=== PATIENT | female | born 1930 | race Caucasian/White ===

== ENCOUNTER 2016-12-16 21:53 | Inpatient (IN) ==
[2016-12-16 22:57] LABS: Basophils % 0.1 %; Hematocrit 39.7 % (35.3-44.9); Hemoglobin 12.8 g/dL (11.5-15.4); Immature Granulocytes % 0.7 % (0-4); Lymphocytes # 1.3 K/mcL (0.6-4.6); Mean Corpuscular HGB Conc 32.2 g/dL (31.6-35.5); Mean Corpuscular Hemoglobin 29.1 pg (28.0-33.3); Mean Corpuscular Volume 90.2 fL (83.0-100.0); Mean Platelet Volume 10.1 fL (9.4-12.4); Monocytes # 0.7 K/mcL (0.0-1.3); Monocytes % 3.9 %; Neutrophils # 14.7 K/mcL (1.6-8.9); Platelet Count 233 K/mcL (140-400); Red Cell Distribution Width 13.6 % (11.5-14.5); Segmented Neutrophils % 87.3 %
[2016-12-16 23:04] LABS: INR 1.1; Prothrombin Time 11.4 Seconds (9.4-12.1)
[2016-12-16 23:07] LABS: Activated Partial Thrombo Time 28.5 Seconds (26.0-36.0)
[2016-12-16 23:10] LABS: Calcium 9.6 mg/dL (8.6-10.8); Potassium 3.7 mEq/L (3.5-4.5)
--- NOTE | 2016-12-16 23:38 | Emergency Department Note ---
START Narrative - START START: I examined this patient and my medical decision-making was reviewed with the OFFICE MESSENGER HELPER/PA/Advanced Practice Nurse/Resident Physician. I agree with the documented findings, disposition and treatment plan as described except to the extent set forth below.
--- NOTE | 2016-12-17 00:10 | Emergency Department Note ---
Disposition Clinical Impression: Hematochezia Disposition: Admitted As Inpatient Condition: Good Referrals: Brayden Tabares Jr, MD [Primary Care Provider] - Forms: ED Satisfaction Letter Time of Disposition: 00:32 General Adult HPI - General Chief complaint: ED GI Bleed Stated complaint: Rectal Bleed Time Seen by Provider: 12/16/16 22:15 Source: patient, family Limitations: no limitations Nursing Notes Reviewed: Yes Vital Signs Reviewed: Yes - History of Present Illness HPI Narrative: Several episodes of bright red bleeding per rectum today. And states she felt a crampy pain in her abdomen had a bowel movement her abdominal pain went away however she did have bright red blood coming out of her rectum. States it was initially streaked with stool but subsequently had several episodes where it was just dripping out of her bottom. Pain Scale: 0 - Related Data Allergies Allergy/AdvReac Type Severity Reaction Status Date / Time No Known Allergies Allergy Verified 12/16/16 22:15 All systems ED: reviewed and negative except as stated. Constitutional: Denies: fever, chills ENT ED: Denies: congestion Cardiovascular: Denies: chest pain, palpitations, syncope Respiratory: Denies: cough, dyspnea Gastrointestinal: Reports: abdominal pain (Cramping prior to defecation none at this time.), diarrhea, hematochezia. Denies: nausea, vomiting, hematemesis, melena Genitourinary: Denies: urgency, dysuria, frequency, hematuria Musculoskeletal: Denies: back pain, neck pain Neurological: Denies: headache, weakness Past Medical History - Past Medical History Medical history: Reports: dementia, hyperlipidemia, hypertension, renal disease - Social History Smoking Status: Former smoker Alcohol use: Reports: none Drug use: Reports: none Physical Exam - General Limitations: no limitations General appearance: alert, in no apparent distress - Head Head exam: atraumatic, normocephalic - Eye Eye exam: Present: normal appearance, PERRL, EOMI. Absent: scleral icterus - ENT ENT exam: normal exam, normal oropharynx, mucous membranes moist - Neck Neck exam: Present: normal inspection, full ROM, trachea midline. Absent: tenderness, meningismus, lymphadenopathy - Chest Chest inspection: Present: normal inspection, symmetric chest wall rise - Respiratory Respiratory exam: Present: normal lung sounds bilaterally - Cardiovascular Cardiovascular exam: Present: regular rate, normal rhythm, normal heart sounds - Abdominal Exam Abdominal exam: Present: soft, Non-Tender, normal bowel sounds. Absent: tenderness, distention, guarding, rebound, rigidity, organomegaly - Rectal Exam Snow Remover present during exam: Yes Rectal exam: Present: normal inspection, normal rectal tone, heme (+) stool, bloody stool (Bright red blood). Absent: hemorrhoids, mass, tenderness - Extremities Exam Extremities exam: Present: normal inspection, full ROM, normal capillary refill. Absent: tenderness, pedal edema - Back Exam Back exam: Present: normal inspection, full ROM. Absent: tenderness - Neurological Exam Neurological exam: Present: alert, other (Pleasantly demented) - Psychiatric Psychiatric exam: Present: normal affect, normal mood. Absent: depressed - Skin Skin exam: Present: warm, dry, intact, normal color. Absent: rash, cyanosis, diaphoresis Course Course Narrative: Pleasantly demented female resting comfortably in bed. Daughter at bedside seeing the patient had several episodes of bright red blood per rectum this afternoon. She states initially the stool was streaked with bright red blood and then subsequently there was several episodes of just blood. Patient states that she did have crampy feeling in her abdomen prior to defecation but this was relieved with defecation. She denies any abdominal pain at this time. She has no abdominal pain on exam. As well resting in bed. She has no other jobs at this time. Her lung sounds are clear heart tones are normal abdomen is soft and nontender with no organomegaly present on exam. She has no edema to her extremities. On rectal exam she has bright red blood. I do not appreciate any masses or hemorrhoids. Patient's family states that she did have colonoscopy around 7 years ago. She has never had an episode of hematochezia before. Admit patient for serial H&H's. Her abdominal exam is benign I do not believe she is imaged at this time. She has not been tachycardic and her pressure is normalized I do not feel that she needs a fluid bolus at this time. We will admit patient to the hospital for further evaluation. Vital Signs Temperature 98.8 F 12/16/16 22:09 Pulse Rate 72 12/16/16 22:09 Respiratory Rate 18 12/16/16 22:09 Blood Pressure 151/75 12/16/16 22:09 O2 Sat by Pulse Oximetry 94 12/16/16 22:09 Temperature 98.8 F 12/16/16 22:09 Pulse Rate 72 12/16/16 22:09 Respiratory Rate 18 12/16/16 22:09 Blood Pressure 151/75 12/16/16 22:09 O2 Sat by Pulse Oximetry 94 12/16/16 22:09 Oxygen Delivery Oxygen Delivery Room Air Medical Decision Making - Lab Data Result diagrams: 12/16/16 22:46 12/16/16 22:46 Lab Results 12/16/16 12/16/16 12/16/16 Range/Units 22:46 22:46 22:46 WBC 16.8 H (4.3-11.1) K/mcL RBC 4.40 (3.82-4.97) M/mcL Hgb 12.8 (11.5-15.4) g/dL Hct 39.7 (35.3-44.9) % MCV 90.2 (83.0-100.0) fL MCH 29.1 (28.0-33.3) pg MCHC 32.2 (31.6-35.5) g/dL RDW 13.6 (11.5-14.5) % Plt Count 233 (140-400) K/mcL MPV 10.1 (9.4-12.4) fL Immature Gran % 0.7 (0-4) % Seg Neutrophils % 87.3 % Lymphocytes % 8.0 % Monocytes % 3.9 % Eosinophils % 0.0 % Basophils % 0.1 % Neutrophils # 14.7 H (1.6-8.9) K/mcL Lymphocytes # 1.3 (0.6-4.6) K/mcL Monocytes # 0.7 (0.0-1.3) K/mcL Eosinophils # 0.0 (0.0-0.6) K/mcL Basophils # 0.0 (0.0-0.2) K/mcL PT 11.4 (9.4-12.1) Seconds INR 1.1 APTT 28.5 (26.0-36.0) Seconds Sodium 139 (136-145) mEq/L Potassium 3.7 (3.5-4.5) mEq/L Chloride 104 (98-109) mEq/L Carbon Dioxide 23 (19-29) mEq/L BUN 21 H (7-20) mg/dL Creatinine 1.57 H (0.57-1.11) mg/dL Est GFR ( Amer) 38 L (> 60) Est GFR (Non-Af Amer) 31 L (> 60) BUN/Creatinine Ratio 13 (6-26) Glucose 116 H (70-99) mg/dL Calculated Osmolality 292 (280-300) Calcium 9.6 (8.6-10.8) mg/dL
--- NOTE | 2016-12-17 05:02 | Internal Med History&Physical ---
Date of Encounter: 12/17/16 Time of Encounter: 03:00 Assessment and Plan (1) Hematochezia Current visit: Yes Status: Acute Monitor hemoglobin and hematocrit. consult dance therapist. Obtain CT scan of the abdomen for further evaluation (2) Leucocytosis Current visit: Yes Status: Acute Likely secondary to GI bleed. CT scan of the abdomen to exclude diverticulitis. UA and CXR to exclude infection. Qualifiers: Leukocytosis type: unspecified Qualified Code(s): D72.829 - Elevated white blood cell count, unspecified (3) CKD (chronic kidney disease) stage 3, GFR 30-59 ml/min Current visit: Yes Status: Chronic Monitor renal function (4) Dementia Current visit: Yes Status: Chronic Continue home meds Qualifiers: Dementia type: unspecified type Dementia behavioral disturbance: without behavioral disturbance Qualified Code(s): F03.90 - Unspecified dementia without behavioral disturbance (5) Hypertension Current visit: Yes Status: Chronic Monitor BP Qualifiers: Hypertension type: essential hypertension Qualified Code(s): I10 - Essential (primary) hypertension (6) DVT prophylaxis Current visit: Yes Status: Acute SCDs Internal Medicine - H&P: HPI Chief complaint: Rectal bleeding Admitted From: Emergency Dept Plans for Post Hospital Care: Home History of present illness: Ms. Helton is a 86 year old female With h/o dementia, hyperlipidemia, hypertension was brought in with h/o Several episodes of bright red bleeding per rectum. Pt seemed to be confused and is not able to give reliable details. No family members at the bedside at the time of my evaluation. I have reviewed the ER records. Rectal bleeding apparently initially started with streaking with stool but subsequently had several episodes where it was just dripping out of her bottom. she apparently felt a crampy pain in her abdomen had a bowel movement her abdominal pain went away. She denies chest pain, shortness of breath, nausea, vomiting, fever, chills. She was evaluated in the emergency department and admitted to the hospitalist service for further management. Past Med Surg Social Fam HX - Past Medical History Medical history: dementia, hyperlipidemia, hypertension, renal disease Psychiatric history: no psych history - Past Surgical History Surgical History: hysterectomy - Social History Smoking Status: Former smoker Alcohol use: none Drug use: none - Family History Mother Adopted: [place]: [place] Family Member Ethnicity: Non- Living Status: Age at : 80 Cause of : STROKE Hx Family Cardiac Disorders: Yes Hx Family Respiratory Disorders: No Hx Family Cancer: No Hx Family GI Disorders: No Hx Family Genitourinary Disorders: No Hx Family Endocrine Disorder: No Hx Family Musculoskeletal Disorders: No Hx Family Neuromuscular Disorders: No Hx Family Neurologic Disorders: Yes (STROKE) Hx Family HEENT Disorders: No Hx Family Autoimmune Disorders: No Hx Family Reproductive Disorders: No Hx Family Psychosocial Disorders: No Hx Family Medical Disorders: No Internal Medicine - H&P: Meds Amlodipine Besylate 10 mg PO DAILY 12/17/16 [History] Atorvastatin 10 mg PO HS 12/17/16 [History] Donepezil HCl 5 mg PO HS 12/17/16 [History] Metoprolol Tartrate 50 mg PO DAILY 12/17/16 [History] Allergies No Known Allergies Allergy (Verified 12/16/16 22:15) ROS unobtainable: due to mental status - Constitutional Vitals: Temp Pulse Resp BP Pulse Ox 98.7 F 115 16 150/56 94 12/17/16 03:07 12/17/16 03:07 12/17/16 03:07 12/17/16 03:07 12/17/16 03:07 Exam: General: Not in acute distress at the time of my evaluation HEENT: Oral mucosa is moist. No conjunctival palor or scleral icterus Neck: No obvious neck swellings Lungs: Clear to auscultation Cardiac: Regular rate and rhythm. No significant murmurs Abdomen: Soft, non tender. Bowel sounds present Genitourinary: No alston catheter Neurological: Alert and confused. No gross localizing deficits Psych: Not aggressive or agitated Extremities: no significant leg edema Skin: No generalized rash Internal Med - H&P Results - Labs CBC & Chem 7: 12/16/16 22:46 12/16/16 22:46 - EKG Data -: EKG Interpreted by Myself EKG shows normal: sinus rhythm - EKG Data EKG comments: CAREN 12/17/16 07:46
[2016-12-17] MEDS ORDERED: Naloxone 0.4 MG/ML INJ IVP PRN (06:44)
[2016-12-17 08:02] LABS: Basophils % 0.1 %; Hematocrit 37.8 % (35.3-44.9); Hemoglobin 12.4 g/dL (11.5-15.4); Immature Granulocytes % 0.5 % (0-4); Lymphocytes # 2.1 K/mcL (0.6-4.6); Mean Corpuscular HGB Conc 32.8 g/dL (31.6-35.5); Mean Corpuscular Hemoglobin 29.4 pg (28.0-33.3); Mean Corpuscular Volume 89.6 fL (83.0-100.0); Mean Platelet Volume 10.6 fL (9.4-12.4); Monocytes # 0.8 K/mcL (0.0-1.3); Monocytes % 5.6 %; Neutrophils # 10.8 K/mcL (1.6-8.9); Platelet Count 220 K/mcL (140-400); Red Blood Count 4.22 M/mcL (3.82-4.97); Red Cell Distribution Width 13.8 % (11.5-14.5); Segmented Neutrophils % 78.8 %
[2016-12-17 08:16] LABS: Albumin 3.3 g/dL (3.5-5.0); Albumin/Globulin Ratio 0.9 (1.1-2.2); Bilirubin,Total 1.3 mg/dL (0.2-1.2); Calcium 9.4 mg/dL (8.6-10.8); Globulin 3.7 g/dL (2.4-3.5); Magnesium 1.8 mg/dL (1.6-2.6); Potassium 3.3 mEq/L (3.5-4.5)
[2016-12-17] MEDS: 0.9 % Sodium Chloride 1,000 ML IVC SCH (08:19)
[2016-12-17] MEDS: amLODIPine 5 MG TABLET PO SCH (09:49)
[2016-12-17 10:55] LABS: Hematocrit 35.9 % (35.3-44.9); Hemoglobin 11.6 g/dL (11.5-15.4)
--- NOTE | 2016-12-17 10:57 | Event Note ---
Date of Encounter: 12/17/16 Time of Encounter: 09:15 (and 1015) Patient seen and examined earlier this morning. Initially on examination, patient asleep and she awakened easily to voice. She is alert and pleasantly confused. She denies pain at this time. She states she has not been bleeding since she got admitted however per nursing report, patient's bed has had to be changed 3 times this morning already and states that the patient has a rather sizable amount of blood and mucus that is saturating her diaper and her bed sheets. Her capillary refill is brisk and she is not pale on examination however will trend her H&H. GI is on board and has been notified of the patient 's continued bleeding, likely colonoscopy today. Patient to be nothing by mouth. No family is present at bedside. Abdominal CT consistent with colitis infectious versus ischemic and with possible phlegmon. Leukocytosis noted- will initiate Cipro and Flagyl (NKDA). Mild hypokalemia noted, magnesium normal. Renal functioning is stable-she has chronic kidney disease stage 3/4. Will trend. ITS Impressions Abdomen/Pelvis CT 12/17/16 06:47 IMPRESSION: 1. Left hemicolonic colitis with questionable 1.8 cm focal intramural phlegmon along the mid sigmoid colon. No perforation or peritoneal abscess. This could relate to infectious/inflammatory versus ischemic etiology. 2. Extensive arterial calcifications. D/ / 12/17/2016 08:46:52 Pablo Venegas MD / medardo Interpreting Provider: Pablo Venegas MD Chest X-Ray 12/17/16 07:51 IMPRESSION: No acute process. D/ / Gabriel Salgado MD / Gabriel Salgado MD Interpreting Provider: Gabriel Salgado MD
[2016-12-17] MEDS: MetroNIDAZOLE 500 MG/100 ML 500 MG/100 ML BAG IVPB SCH ×3 (11:36→23:52)
--- NOTE | 2016-12-17 11:46 | Electrocardiograph Report ---
[address] [place], [place] [address] Test Date: 2016-12-16 Pat Name: Wayne Helton Department: 105 Room: 3B21 Gender: F Regulatory Affairs Specialist: DOLORES : [id number] Requested By: Guillermo Jung Order Number: [id number] Reading MD: Mahendra Lieberman MD Measurements Intervals [place] Rate: 71 P: 43 OK: 178 QRS: -45 QRSD: 121 T: 62 QT: 423 QTc: 445 Interpretive Statements SINUS RHYTHM MARKED LEFT AXIS DEVIATION MODERATE INTRAVENTRICULAR CONDUCTION DELAY VOLTAGE CRITERIA FOR LVH Poor R wave progression Electronically Signed On 12-17-2016 11:44:23 EDT by Mahendra Lieberman MD
--- NOTE | 2016-12-17 12:49 | Gastroenterology Consult Note ---
<Roger Murray - Last Filed: 12/17/16 12:47> Date of Encounter: 12/17/16 Time of Encounter: 11:30 - Assessment and plan (1) Hematochezia Current Visit: Yes Status: Acute Assessment and plan: Pt with several episodes of BRBPR, but Hgb 12.4. Continue to monitor CBC. Consider colonoscopy in 6-8 weeks. (2) Dementia Current Visit: Yes Status: Chronic Qualifiers: Dementia type: unspecified type Dementia behavioral disturbance: without behavioral disturbance Qualified Code(s): F03.90 - Unspecified dementia without behavioral disturbance (3) Leucocytosis Current Visit: Yes Status: Acute Assessment and plan: Management per primary team. Improving, continue antibiotics. Qualifiers: Leukocytosis type: unspecified Qualified Code(s): D72.829 - Elevated white blood cell count, unspecified (4) CKD (chronic kidney disease) stage 3, GFR 30-59 ml/min Current Visit: Yes Status: Chronic - Time Spent With Patient Total time spent is greater than 50% in coordination of care (as documented) at patient's floor/unit and/or counseling patient: GI History of Present Illness - Data of Consult Patient: new to practice Consult date: 12/17/16 Requesting Physician: Jacqueline Mccloud - Consult Narrative Reason for consult: Hematochezia History of present illness: Ms. Helton is a 86 year old female with PMHx of dementia, HLD, HTN who was brought to the ED with several episodes of BRBPR that started with streaking with stool but then had several episodes where it was dripping from her anus. She apparently felt a crampy pain in her abdomen had a bowel movement her abdominal pain went away. She denies fever, chills, chest pain, nausea, vomiting. CT A/P with left hemicolonic colitis with questionable 1.8 cm focal intramural phlegmon along the mid sigmoid colon. No perforation peritoneal abscess could relate to infectious/inflammatory versus ischemic etiology. Procedures: Colonoscopy 03/30/2009 Dr. Daly: Tubular adenoma splenic flexure. NSAIDs: None Anticoagulation: None Past Med Surg Social Fam HX - Past Medical History Medical history: dementia, hyperlipidemia, hypertension, renal disease Psychiatric history: no psych history - Past Surgical History Surgical History: hysterectomy - Social History Smoking Status: Former smoker Alcohol use: none Drug use: none - Family History Mother Adopted: [place]: [place] Family Member Ethnicity: Non- Living Status: Age at : 80 Cause of : STROKE Hx Family Cardiac Disorders: Yes Hx Family Respiratory Disorders: No Hx Family Cancer: No Hx Family GI Disorders: No Hx Family Genitourinary Disorders: No Hx Family Endocrine Disorder: No Hx Family Musculoskeletal Disorders: No Hx Family Neuromuscular Disorders: No Hx Family Neurologic Disorders: Yes (STROKE) Hx Family HEENT Disorders: No Hx Family Autoimmune Disorders: No Hx Family Reproductive Disorders: No Hx Family Psychosocial Disorders: No Hx Family Medical Disorders: No - Gastrointestinal Gastrointestinal: Present: as per HPI - Constitutional Constitutional: as per HPI - EENT Eyes: as per HPI Ears: Present: as per HPI Nose, mouth and throat: Present: as per HPI - Cardiovascular Cardiovascular ROS: Present: as per HPI - Respiratory Respiratory IM: Present: as per HPI - Genitourinary Genitourinary: Absent: change in color, Urinary frequency - Neurological ROS Neurological GI: Present: as per HPI - Hematologic/Lymphatic Hematologic/Lymphatic pediatric: Present: as per HPI - Musculoskeletal Musculoskeletal ROS GI: Present: as per HPI - Integumentary Integumentary GI: Present: as per HPI - Psychiatric ROS Psychiatric GI: Present: as per HPI - Endocrine Endocrine IM: Present: as per HPI - Constitutional Vitals: Temp Pulse Resp BP Pulse Ox 99.9 F H 59 16 123/71 92 12/17/16 11:17 12/17/16 11:17 12/17/16 11:17 12/17/16 11:17 12/17/16 11:17 General appearance: Present: cooperative, no acute distress Exam: Alert but pleasantly confused - Head Head exam: Present: atraumatic, normocephalic - Eye Eye exam: Present: normal appearance, sclera anicteric - ENT ENT exam: Present: mucous membranes dry - Neck Neck exam general surgery: Present: normal inspection, trachea midline - Respiratory Respiratory exam: Present: decreased breath sounds, CTAB. Absent: rales, rhonchi - Cardiovascular Cardiovascular exam: Present: RRR, +S1, +S2 - GI/Abdominal GI/Abdominal exam: Present: soft, no peritoneal signs. Absent: distended, firm , guarding, tenderness - Rectal Rectal exam: Present: deferred - Extremities Exam Extremities exam: Present: warm - Neurological Exam Neurological exam: Present: altered. Absent: oriented X3 - Psychiatric Psychiatric exam: Present: normal affect, normal mood - Skin Skin exam: Present: dry, intact, normal color, warm Results - Labs CBC & Chem 7: 12/17/16 10:33 12/17/16 07:41 Labs: Last Result Calcium 9.4 mg/dL (8.6-10.8) 12/17/16 07:41 Entire Visit Hgb 11.6 g/dL (11.5-15.4) 12/17/16 10:33 Hct 35.9 % (35.3-44.9) 12/17/16 10:33 PT 11.4 Seconds (9.4-12.1) 12/16/16 22:46 Total Bilirubin 1.3 mg/dL (0.2-1.2) H 12/17/16 07:41 AST 17 Units/L (5-34) 12/17/16 07:41 ALT 9 Units/L (0-55) 12/17/16 07:41 - ABG ABG results: PT/INR, D-dimer PT 11.4 Seconds (9.4-12.1) 12/16/16 22:46 - Impressions Impressions Chest X-Ray 12/17/16 07:51 IMPRESSION: No acute process. D/ / Gabriel Salgado MD / Gabriel Salgado MD Interpreting Provider: Gabriel Salgado MD Consult Discharge Plan - Plan Referrals: Brayden Tabares Jr, MD [Primary Care Provider] - <Mariela Nieves - Last Filed: 12/17/16 14:55> Date of Encounter: 12/17/16 Time of Encounter: 14:00 - Time Spent With Patient Total time spent is greater than 50% in coordination of care (as documented) at patient's floor/unit and/or counseling patient: GI History of Present Illness - Data of Consult Requesting Physician: Jacqueline Mccloud - Consult Narrative History of present illness: Ms. Helton is a 86 year old female - Constitutional Vitals: Temp Pulse Resp BP Pulse Ox 99.9 F H 59 16 123/71 92 12/17/16 11:17 12/17/16 11:17 12/17/16 11:17 12/17/16 11:17 12/17/16 11:17 Results - Labs CBC & Chem 7: 12/17/16 12:36 12/17/16 07:41 Labs: Last Result Calcium 9.4 mg/dL (8.6-10.8) 12/17/16 07:41 Entire Visit Hgb 10.9 g/dL (11.5-15.4) L 12/17/16 12:36 Hct 33.9 % (35.3-44.9) L 12/17/16 12:36 PT 11.4 Seconds (9.4-12.1) 12/16/16 22:46 Total Bilirubin 1.3 mg/dL (0.2-1.2) H 12/17/16 07:41 AST 17 Units/L (5-34) 12/17/16 07:41 ALT 9 Units/L (0-55) 12/17/16 07:41 - ABG ABG results: PT/INR, D-dimer PT 11.4 Seconds (9.4-12.1) 12/16/16 22:46 - Impressions Impressions Chest X-Ray 12/17/16 07:51 IMPRESSION: No acute process. D/ / Gabriel Salgado MD / Gabriel Salgado MD Interpreting Provider: Gabriel Salgado MD - Attending Attestation I examined this patient and my medical decision-making was reviewed with the ENTERPRISE SOFTWARE ENGINEER/PA/Advanced Practice Nurse/Resident Physician. I agree with the documented findings, disposition and treatment plan as described except to the extent set forth below. rectal bleeding most probably due to ischemic colitis. Recommendation: Continue IV fluids IV antibiotics no plan for colonoscopy at this point
[2016-12-17 12:52] LABS: Hematocrit 33.9 % (35.3-44.9); Hemoglobin 10.9 g/dL (11.5-15.4)
[2016-12-17 19:31] LABS: Hematocrit 35.2 % (35.3-44.9); Hemoglobin 11.4 g/dL (11.5-15.4)
[2016-12-18 03:59] LABS: Hematocrit 33.3 % (35.3-44.9); Hemoglobin 10.8 g/dL (11.5-15.4); Immature Granulocytes % 0.4 % (0-4); Lymphocytes % 19.4 %; Mean Corpuscular HGB Conc 32.4 g/dL (31.6-35.5); Mean Corpuscular Hemoglobin 29.7 pg (28.0-33.3); Mean Corpuscular Volume 91.5 fL (83.0-100.0); Mean Platelet Volume 10.9 fL (9.4-12.4); Monocytes % 5.9 %; Platelet Count 183 K/mcL (140-400); Red Blood Count 3.64 M/mcL (3.82-4.97); Red Cell Distribution Width 13.9 % (11.5-14.5); Segmented Neutrophils % 73.8 %
[2016-12-18 04:00] LABS: Basophils % 0.2 %; Eosinophils % 0.3 %; Lymphocytes # 2.5 K/mcL (0.6-4.6); Monocytes # 0.8 K/mcL (0.0-1.3); Neutrophils # 9.6 K/mcL (1.6-8.9)
[2016-12-18] MEDS: 0.9 % Sodium Chloride 1,000 ML IVC SCH ×2 (04:11→19:48)
[2016-12-18 04:15] LABS: Calcium 8.4 mg/dL (8.6-10.8); Potassium 3.8 mEq/L (3.5-4.5)
[2016-12-18] MEDS: MetroNIDAZOLE 500 MG/100 ML 500 MG/100 ML BAG IVPB SCH ×3 (08:30→23:58)
[2016-12-18] MEDS: amLODIPine 5 MG TABLET PO SCH (08:30)
[2016-12-18 09:19] LABS: Bilirubin,Urine Negative (Negative); Blood,Urine Large (Negative); Clarity,Urine Cloudy (Clear); Color,Urine Yellow (Yellow); Glucose,Urine (UA) Normal (Normal); Ketones,Urine Negative (Negative); Leukocyte Esterase,Urine Large (Negative); Nitrite,Urine Negative (Negative); PH,Urine 6.5 pH Units (5.0-8.0); Protein,Urine 100 mg/dL (Neg-Trace); Specific Gravity,Urine 1.014 (1.010-1.025); Urobilinogen,Urine Normal (Normal)
[2016-12-18 09:22] LABS: Bacteria,Urine None Seen per hpf (None-Few); RBC,Urine TNTC per hpf (0-3); Squamous Epithelial Cell,Urine Many per lpf (None-Few); WBC,Urine 50-100 per hpf (0-3)
--- NOTE | 2016-12-18 11:01 | Internal Med Progress Note ---
Date of Encounter: 12/18/16 Time of Encounter: 09:30 - Assessment and plan (1) Colitis, acute Current Visit: Yes Status: Acute Assessment and plan: Abdominal CT consistent with colitis infectious/inflammatory versus ischemic. She was started on ciprofloxacin and Flagyl yesterday. Stool culture pending. Leukocytosis trending down. She has remained hemodynamically stable, we will continue to trend. Her bloody bowel movements have lessened in amount and frequency. Urinalysis consistent with UTI- covered with Cipro- will await culture. ITS Impressions Abdomen/Pelvis CT 12/17/16 06:47 IMPRESSION: 1. Left hemicolonic colitis with questionable 1.8 cm focal intramural phlegmon along the mid sigmoid colon. No perforation or peritoneal abscess. This could relate to infectious/inflammatory versus ischemic etiology. 2. Extensive arterial calcifications. D/ / 12/17/2016 08:46:52 Pablo Venegas MD / [facility] Interpreting Provider: Pablo Venegas MD Chest X-Ray 12/17/16 07:51 IMPRESSION: No acute process. D/ / Gabriel Salgado MD / Gabriel Salgado MD Interpreting Provider: Gabriel Salgado MD (2) UTI (urinary tract infection) Current Visit: Yes Status: Acute Assessment and plan: continue Cipro- UCx pending (3) Acute blood loss anemia Current Visit: Yes Status: Acute Assessment and plan: Hemoglobin has dropped slightly and is now 10.8. She has remained hemodynamically stable. Her bleeding has improved since yesterday, she is still hemodynamically stable, will trend. (4) Hematochezia Current Visit: Yes Status: Acute Assessment and plan: Resolving and decreasing in frequency and amount. She is still hemodynamically stable, we will continue to trend. (5) Dementia Current Visit: Yes Status: Chronic Assessment and plan: Patient is alert and pleasantly confused. She is oriented to self only. Qualifiers: Dementia type: unspecified type Dementia behavioral disturbance: without behavioral disturbance Qualified Code(s): F03.90 - Unspecified dementia without behavioral disturbance (6) Hypertension Current Visit: Yes Status: Chronic Assessment and plan: Controlled with his home doses of amlodipine and metoprolol, will trend Qualifiers: Hypertension type: essential hypertension Qualified Code(s): I10 - Essential (primary) hypertension (7) Leucocytosis Current Visit: Yes Status: Acute Assessment and plan: Resolving, continue Cipro and Flagyl Qualifiers: Leukocytosis type: unspecified Qualified Code(s): D72.829 - Elevated white blood cell count, unspecified (8) CKD (chronic kidney disease) stage 3, GFR 30-59 ml/min Current Visit: Yes Status: Chronic Assessment and plan: 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 Current functioning at the high end of her normal. (9) DVT prophylaxis Current Visit: Yes Status: Acute Assessment and plan: IPC's ordered. Pharmacologic prophylaxis contraindicated secondary to GI bleeding. - Subjective Interval history: Patient seen and examined. On examination, patient sitting upright in bed. Patient denies pain at this time. She states she slept well last night. She states she was able to drink a little bit of breakfast. - Constitutional Vitals: Temp Pulse Resp BP Pulse Ox 98.8 F 64 17 116/61 92 12/18/16 07:27 12/18/16 07:27 12/18/16 07:27 12/18/16 07:27 12/18/16 07:27 General appearance: Present: A&O X 1 (Oriented to self, pleasantly confused), pleasant, no acute distress - Head Head exam: Present: atraumatic, normocephalic - Eye Eye exam: Present: PERRL, conjuntiva pink, sclera anicteric Pupils: Present: PERRL - Neck Neck exam general surgery: Present: supple, trachea midline. Absent: lymphadenopathy - Respiratory Respiratory exam: Present: CTAB. Absent: accessory muscle use, rales, respiratory distress, rhonchi, wheezes - Cardiovascular Cardiovascular exam: Present: RRR, +S1, +S2. Absent: diastolic murmur, gallop, rubs, systolic murmur - GI/Abdominal GI/Abdominal exam: Present: normal bowel sounds, soft, no peritoneal signs. Absent: distended, tenderness - Extremities Exam Extremities exam: Present: warm, radial pulses palpable and symetrical. Absent : calf tenderness, cyanotic, pedal edema - Neurological Exam Neurological exam: Present: alert, CN II-XII intact, no focal deficits, strengths equal and symetr throughout. Absent: pronater drift, facial droop, speech deficit - Skin Skin exam: Present: dry, intact, normal color, warm Internal Medicine: Result - Labs CBC & Chem 7: 12/18/16 03:11 12/18/16 03:11 Labs: Short CBC 12/17/16 12/17/16 12/18/16 Range/Units 12:36 19:12 03:11 WBC 13.0 H (4.3-11.1) K/mcL Hgb 10.9 L 11.4 L 10.8 L (11.5-15.4) g/dL Hct 33.9 L 35.2 L 33.3 L (35.3-44.9) % Plt Count 183 (140-400) K/mcL Neutrophils # 9.6 H (1.6-8.9) K/mcL BMP 12/18/16 03:11 Sodium 138 Potassium 3.8 Chloride 108 Carbon Dioxide 24 BUN 16 Creatinine 1.31 H Glucose 89 Calcium 8.4 L Urine 12/18/16 Range/Units 08:58 Urine Color Yellow (Yellow) Urine Clarity Cloudy A (Clear) Urine pH 6.5 (5.0-8.0) pH Units Ur Specific [place] 1.014 (1.010-1.025) Urine Protein 100 H (Neg-Trace) mg/dL Urine Glucose (UA) Normal (Normal) mg/dL - ABG Interpretation ABG results: PT/INR, D-dimer PT 11.4 Seconds (9.4-12.1) 12/16/16 22:46 - VTE Documentation of Mechanical Device: Intermittent pneumatic compression device Consult Discharge Plan - Plan Referrals: Brayden Tabares Jr, MD [Primary Care Provider] -
[2016-12-18 19:39] LABS: Adenovirus F 40/41 PCR Not detected (Not detect); Astrovirus PCR Not detected (Not detect); C.difficile Toxin A/B by PCR Not detected (Not detect); Campylobacter by PCR Not detected (Not detect); Cryptosporidium by PCR Not detected (Not detect); Cyclospora cayetanensis PCR Not detected (Not detect); E. coli O157 by PCR Not detected (Not detect); Entamoeba histolytica PCR Not detected (Not detect); Enteroaggregative E.coli(EAEC) Not detected (Not detect); Enteropathogenic E.coli(EPEC) Not detected (Not detect); Enterotoxigenic E.coli (ETEC) Not detected (Not detect); Giardia lamblia PCR Not detected (Not detect); Norovirus GI/GII PCR Not detected (Not detect); Plesiomonas shigelloides PCR Not detected (Not detect); Rotavirus A PCR Not detected (Not detect); Salmonella PCR Not detected (Not detect); Sapovirus PCR Not detected (Not detect); Shig/EnteroinvasiveE coli EIEC Not detected (Not detect); Shigalike tox-prod E coli STEC Not detected (Not detect); Vibrio PCR Not detected (Not detect); Vibrio cholerae PCR Not detected (Not detect); Yersinia enterocolitica PCR Not detected (Not detect)
[2016-12-19 06:46] LABS: Basophils % 0.2 %; Eosinophils # 0.2 K/mcL (0.0-0.6); Eosinophils % 2.3 %; Hemoglobin 11.2 g/dL (11.5-15.4); Immature Granulocytes % 0.5 % (0-4); Lymphocytes % 24.6 %; Mean Corpuscular HGB Conc 32.9 g/dL (31.6-35.5); Mean Corpuscular Hemoglobin 29.9 pg (28.0-33.3); Mean Corpuscular Volume 90.9 fL (83.0-100.0); Mean Platelet Volume 10.9 fL (9.4-12.4); Monocytes # 0.6 K/mcL (0.0-1.3); Monocytes % 7.7 %; Neutrophils # 5.4 K/mcL (1.6-8.9); Platelet Count 191 K/mcL (140-400); Red Blood Count 3.74 M/mcL (3.82-4.97); Red Cell Distribution Width 13.9 % (11.5-14.5); Segmented Neutrophils % 64.7 %
[2016-12-19 07:20] LABS: Calcium 8.4 mg/dL (8.6-10.8); Potassium 3.2 mEq/L (3.5-4.5)
[2016-12-19] MEDS: 0.9 % Sodium Chloride 1,000 ML IVC SCH (07:56)
[2016-12-19] MEDS: MetroNIDAZOLE 500 MG/100 ML 500 MG/100 ML BAG IVPB SCH ×2 (07:57→17:21)
[2016-12-19] MEDS: amLODIPine 5 MG TABLET PO SCH (07:57)
[2016-12-19] MEDS ORDERED: Potassium Chloride Elixir 20 MEQ/15 ML UDC PO ONE (10:32)
--- NOTE | 2016-12-19 14:19 | Internal Med Progress Note ---
Date of Encounter: 12/19/16 Time of Encounter: 14:17 - Assessment and plan (1) Hematochezia Current Visit: Yes Status: Acute Assessment and plan: still has bloody stool. She is still hemodynamically stable, we will continue to trend. (2) Dementia Current Visit: Yes Status: Chronic Assessment and plan: Patient is alert and pleasantly confused. She is oriented to self only. 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 Current functioning at the high end of her normal. (5) Colitis, acute Current Visit: Yes Status: Acute Assessment and plan: Abdominal CT consistent with colitis infectious/inflammatory versus ischemic. She was started on ciprofloxacin and Flagyl.. Leukocytosis resolved. She has remained hemodynamically stable, we will continue to trend. Her bloody bowel movements have slightly improved. Urinalysis consistent with UTI- covered with Cipro- urine cx shows no growth. ITS Impressions Abdomen/Pelvis CT 12/17/16 06:47 IMPRESSION: 1. Left hemicolonic colitis with questionable 1.8 cm focal intramural phlegmon along the mid sigmoid colon. No perforation or peritoneal abscess. This could relate to infectious/inflammatory versus ischemic etiology. 2. Extensive arterial calcifications. D/ / 12/17/2016 08:46:52 [facility]as MD / [facility] Interpreting Provider: Pablo Venegas MD Chest X-Ray 12/17/16 07:51 IMPRESSION: No acute process. D/ / Gabriel Salgado MD / Gabriel Salgado MD Interpreting Provider: Gabriel Salgado MD (6) UTI (urinary tract infection) Current Visit: Yes Status: Acute Assessment and plan: continue Cipro- will cover UTI urine cx shows no growth Qualifiers: Urinary tract infection type: acute cystitis Hematuria presence: with hematuria Qualified Code(s): N30.01 - Acute cystitis with hematuria - Subjective Interval history: Patient seen at the bedside, denies any abdominal pain, nausea or vomiting. Reports that she had a bloody stool again this morning. GI has been consulted, planned on doing colonoscopy 6-8 weeks as outpatient. - Constitutional Vitals: Temp Pulse Resp BP Pulse Ox 98.3 F 57 24 124/57 97 12/19/16 10:37 12/19/16 10:37 12/19/16 10:37 12/19/16 10:37 12/19/16 10:37 General appearance: Present: A&O X 1 (Oriented to self, pleasantly confused), pleasant, no acute distress Exam: - Head Head exam: Present: atraumatic, normocephalic - Eye Eye exam: Present: PERRL, conjuntiva pink, sclera anicteric Pupils: Present: PERRL - Neck Neck exam general surgery: Present: supple, trachea midline. Absent: lymphadenopathy - Respiratory Respiratory exam: Present: CTAB. Absent: accessory muscle use, rales, respiratory distress, rhonchi, wheezes - Cardiovascular Cardiovascular exam: Present: RRR, +S1, +S2. Absent: diastolic murmur, gallop, rubs, systolic murmur - GI/Abdominal GI/Abdominal exam: Present: normal bowel sounds, soft, no peritoneal signs. Absent: distended, tenderness - Extremities Exam Extremities exam: Present: warm, radial pulses palpable and symetrical. Absent : calf tenderness, cyanotic, pedal edema - Neurological Exam Neurological exam: Present: alert, CN II-XII intact, no focal deficits, strengths equal and symetr throughout. Absent: pronater drift, facial droop, speech deficit - Skin Skin exam: Present: dry, intact, normal color, warm Internal Medicine: Result - Labs CBC & Chem 7: 12/19/16 06:15 12/19/16 06:15 Labs: Short CBC 12/19/16 Range/Units 06:15 WBC 8.3 (4.3-11.1) K/mcL Hgb 11.2 L (11.5-15.4) g/dL Hct 34.0 L (35.3-44.9) % Plt Count 191 (140-400) K/mcL Neutrophils # 5.4 (1.6-8.9) K/mcL BMP 12/19/16 06:15 Sodium 141 Potassium 3.2 L Chloride 112 H Carbon Dioxide 21 BUN 10 Creatinine 1.19 H Glucose 86 Calcium 8.4 L - ABG Interpretation ABG results: PT/INR, D-dimer PT 11.4 Seconds (9.4-12.1) 12/16/16 22:46 - VTE Documentation of Mechanical Device: Intermittent pneumatic compression device Consult Discharge Plan - Plan Referrals: Brayden Tabares Jr, MD [Primary Care Provider] -
[2016-12-20] MEDS: MetroNIDAZOLE 500 MG/100 ML 500 MG/100 ML BAG IVPB SCH ×2 (00:16→07:31)
[2016-12-20] MEDS: 0.9 % Sodium Chloride 1,000 ML IVC SCH (04:28)
[2016-12-20] MEDS: amLODIPine 5 MG TABLET PO SCH (07:31)
[2016-12-20 11:53] VITALS: BP 105/59
--- NOTE | 2016-12-20 14:11 | Discharge Summary ---
Date of Encounter: 12/20/16 Time of Encounter: 10:00 - Discharge Diagnosis (1) Colitis, acute Priority: Primary Status: Acute Comments: Had 2 bowel movements prior to discharge that were nonbloody. Tolerated a regular diet prior to discharge. Denied abdominal pain. Followup outpatient. (2) UTI (urinary tract infection) Priority: Primary Status: Acute Comments: Urine culture negative. Qualifiers: Urinary tract infection type: acute cystitis Hematuria presence: with hematuria Qualified Code(s): N30.01 - Acute cystitis with hematuria (3) Acute blood loss anemia Priority: Primary Status: Acute Comments: She remained hemodynamically stable. Her bleeding had ceased prior to dischage as she had 2 nonbloody bowel movements. (4) Hematochezia Priority: Primary Status: Resolved (5) Dementia Priority: Secondary Status: Chronic Comments: pleasantly confused during this admission Qualifiers: Dementia type: unspecified type Dementia behavioral disturbance: without behavioral disturbance Qualified Code(s): F03.90 - Unspecified dementia without behavioral disturbance (6) Hypertension Priority: Secondary Status: Chronic Comments: Controlled with her regular home medications, follow up outpatient. 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 Current functioning at the high end of her normal. Followup outpatient (9) DVT prophylaxis Priority: Primary Status: Acute Comments: IPC's ordered. Pharmacologic prophylaxis contraindicated secondary to GI bleeding. - Discharge Medications Prescriptions: Ciprofloxacin HCl [Cipro] 250 mg PO BID #16 tab metroNIDAZOLE [Flagyl] 500 mg PO TID #15 tablet Home Medications: Amlodipine Besylate 10 mg PO DAILY 12/17/16 [History] Atorvastatin [Lipitor] 10 mg PO HS 12/17/16 [History] Donepezil [Aricept] 5 mg PO HS 12/17/16 [History] Metoprolol [Lopressor] 50 mg PO DAILY 12/17/16 [History] Ciprofloxacin HCl [Cipro] 250 mg PO BID #16 tab 12/20/16 [Rx] metroNIDAZOLE [Flagyl] 500 mg PO TID #15 tablet 12/20/16 [Rx] Allergies/Adverse Reactions: Allergies No Known Allergies Allergy (Verified 12/17/16 08:13) Date of admission: 12/17/16 07:46 Primary care physician: Brayden Tabares Jr, MD Consults: 12/17/16 06:52 Consult to Gastroenterology [CONS] Routine Consulting Provider: Gastroenterology Ana Maria Reason for Consult: Hematochezia Call Completed: No Discharging clinician: Jacqueline Marquez Anticipated date of discharge: 12/20/16 - Patient Status Disposition: Home, Self-Care Condition: Good Functional capacity at discharge: uses cane/walker Overall status at discharge: patient is progressing back to baseline - Discharge Instructions Follow Up With: Brayden Tabares Jr, MD [Primary Care Provider] - Mariela Nieves MD [Partnered Physician] - Forms: ED Satisfaction Letter Additional Instructions: Follow-up with primary care provider within one to 2 weeks, follow-up with GI as instructed. - Diet and Activity Activity: increase activity as tolerated Diet: advance to your usual diet Hospital course: Ms. Helton is a 86 year old female past medical history of dementia, hyperlipidemia, hypertension, chronic kidney disease stage 3/4. Patient presented to the emergency room chief complaint several episodes of bright red blood per rectum. Patient was confused consistent with her dementia and was unable to give details. According to ER records and family report, rectal bleeding started initially with streaking in her stool but led to several episodes where blood was dripping out of her bottom. Patient also endorsed cramping across her lower abdomen at that time. She also states that the pain went away after she had a bowel movement. She denied chest pain, shortness of breath, nausea vomiting, fever or chills. Workup in the emergency department unremarkable other than an abnormal urinalysis. Patient was admitted to the hospitalist service for further evaluation and management. Chest x-ray negative. Abdominal CT consistent with colitis of infectious/inflammatory versus ischemic etiology. Patient was started on ciprofloxacin and Flagyl. Her leukocytosis trended down during this admission. She was admitted and observed over the course of 3 nights and she remained hemodynamically stable. She was not transfused during this admission. GI was brought on board who cleared her for outpatient follow-up and a colonoscopy 6-8 weeks after discharge. Prior to discharge, patient was able to tolerate a regular diet without difficulty. She also had 2 bowel movements that were nonbloody prior to discharge. She denied abdominal pain throughout this admission. Her urine culture was negative so UTI was ruled out. Stool culture was negative so infectious etiology less likely however she was prescribed for course of ciprofloxacin and Flagyl. She was discharged home in stable condition with close outpatient follow-up recommended. ITS Impressions Abdomen/Pelvis CT 12/17/16 06:47 IMPRESSION: 1. Left hemicolonic colitis with questionable 1.8 cm focal intramural phlegmon along the mid sigmoid colon. No perforation or peritoneal abscess. This could relate to infectious/inflammatory versus ischemic etiology. 2. Extensive arterial calcifications. D/ / 12/17/2016 08:46:52 Pablo Venegas MD / [facility] Interpreting Provider: Pablo Venegas MD Chest X-Ray 12/17/16 07:51 IMPRESSION: No acute process. D/ / Gabriel Salgado MD / Gabriel Salgado MD Interpreting Provider: Gabriel Salgado MD - Time Spent with Patient Total time spent providing and/or coordinating discharge services: - Constitutional Vitals: Temp Pulse Resp BP Pulse Ox 98.9 F 70 16 105/59 92 12/20/16 11:48 12/20/16 11:48 12/20/16 11:48 12/20/16 11:48 12/20/16 11:48 General appearance: Present: A&O X 1 (Oriented to self, pleasantly confused), pleasant, no acute distress - Head Head exam: Present: atraumatic, normocephalic - Eye Eye exam: Present: PERRL, conjuntiva pink, sclera anicteric Pupils: Present: PERRL - Neck Neck exam general surgery: Present: supple, trachea midline. Absent: lymphadenopathy - Respiratory Respiratory exam: Present: CTAB. Absent: accessory muscle use, rales, respiratory distress, rhonchi, wheezes - Cardiovascular Cardiovascular exam: Present: RRR, +S1, +S2. Absent: diastolic murmur, gallop, rubs, systolic murmur - GI/Abdominal GI/Abdominal exam: Present: normal bowel sounds, soft, tenderness, no peritoneal signs. Absent: distended - Extremities Exam Extremities exam: Present: warm, radial pulses palpable and symetrical. Absent : calf tenderness, cyanotic, pedal edema - Neurological Exam Neurological exam: Present: alert, CN II-XII intact, oriented X3, no focal deficits, strengths equal and symetr throughout. Absent: pronater drift, facial droop, speech deficit - Skin Skin exam: Present: dry, intact, pallor, warm - VTE Documentation of Mechanical Device: Intermittent pneumatic compression device
== END 2016-12-20 16:45 | disposition home or self-care (01) | DRG 392 ==
LOC: EMEROO 21:53 → 3BNU 21:53 → SUATTDRO 12-17 00:17 → 3BNU 12-17 01:05
PROVIDERS: ADMIT Pediatrics; ATTEND Nurse Practitioner Family